=== PATIENT | female | born 1995 | race American Indian/Alaskan Native ===

== ENCOUNTER 2018-05-09 15:56 | Emergency (ER) | payer SELFPAY | END 2018-05-09 19:19 | disposition left against medical advice (07) | LOC: ED 15:56 | DX: Z02.89 Encounter for other administrative examinations (principal); R21 Rash and other nonspecific skin eruption ==

== ENCOUNTER 2018-06-30 20:08 | Emergency (ER) | payer SELFPAY ==
[2018-06-30 20:39] VITALS: RESP 18; TEMP 99.4; BMI 33.0
[2018-06-30 21:01] LABS: INFLUENZA A B NEGATIVE FOR FLU A/B (NEGATIVE)
[2018-06-30] MEDS ORDERED: Benzocaine/Menthol (Cepacol) Lozenge MT STA (21:01)
--- NOTE | 2018-06-30 21:05 | ED PDOC ---
Arrival/HPI - General Chief Complaint: ENT Problem Time Seen by Provider: 06/30/18 20:10 Historian: Patient - History of Present Illness Narrative History of Present Illness (Text): 22 y/o female with PMH of DM and asthma presents to the ED c/o sore throat, headache, and sinus congestion x 1 day. Sore throat is worse with swallowing. Admits to fever yesterday. Pt has not taken any medication for her symptoms. Denies recent travel or sick contacts. Denies chest pain, SOB, cough, abdominal pain, nausea, vomiting, urinary symptoms, ear pain, vision changes, dizziness, neck pain/stiffness or any other associated symptoms. Past Medical History - Provider Review Nursing Documentation Reviewed: Yes - Pulmonary Hx Asthma: Yes - Endocrine/Metabolic Hx Diabetes Mellitus Type 2: Yes - Psychiatric Hx Substance Use: No Family/Social History - Physician Review Nursing Documentation Reviewed: Yes Family/Social History: No Known Family HX Smoking Status: Never Smoked Hx Alcohol Use: No Hx Substance Use: No Allergies/Home Meds Allergies/Adverse Reactions: Allergies No Known Allergies Allergy (Verified 06/30/18 20:21) Review of Systems - Review of Systems Constitutional: Fevers Eyes: Normal. absent: Vision Changes, Photophobia ENT: Sore Throat Respiratory: Normal. absent: SOB, Cough Cardiovascular: Normal. absent: Chest Pain, Palpitations, Syncope Gastrointestinal: Normal. absent: Abdominal Pain, Nausea, Vomiting Genitourinary Female: Normal. absent: Dysuria, Frequency Musculoskeletal: Normal. absent: Back Pain, Neck Pain Skin: Normal. absent: Rash Neurological: Headache. absent: Dizziness, Focal Weakness Physical Exam Vital Signs Reviewed: Yes Vital Signs Temp Pulse Resp BP Pulse Ox 06/30/18 20:21 99.4 F 106 H 18 123/84 100 Temperature: Afebrile Blood Pressure: Normal Pulse: Tachycardic Respiratory Rate: Normal Appearance: Positive for: Well-Appearing, Non-Toxic, Comfortable Pain Distress: None Mental Status: Positive for: Alert and Oriented X 3 - Systems Exam Head: Present: Atraumatic, Normocephalic Pupils: Present: PERRL Extroacular Muscles: Present: EOMI Conjunctiva: Present: Normal Ears: Present: Normal, NORMAL TM, Normal Canal Mouth: Present: Moist Mucous Membranes Pharnyx: Present: ERYTHEMA (bilateral tonsils). No: EXUDATE, TONSILS ENLARGED, Peritonsilar Swelling, Uvular Deviation, Muffled/Hoarse Voice, Strider, Soft Palate/Uvular Edema Nose (External): Present: Atraumatic Nose (Internal): Present: Normal Inspection Neck: Present: Normal Range of Motion Respiratory/Chest: Present: Clear to Auscultation, Good Air Exchange. No: Respiratory Distress, Accessory Muscle Use Cardiovascular: Present: Regular Rate and Rhythm, Normal S1, S2. No: Murmurs Abdomen: No: Tenderness, Distention, Peritoneal Signs Back: Present: Normal Inspection. No: CVA Tenderness Upper Extremity: Present: Normal Inspection, Normal ROM, NORMAL PULSES, Neurovascularly Intact, Capillary Refill < 2s. No: Cyanosis, Edema, Temperature Abnormalties Lower Extremity: Present: Normal ROM Neurological: Present: GCS=15, CN II-XII Intact, Speech Normal Skin: Present: Warm, Dry, Normal Color. No: Rashes Lymphatic: No: Cervical Adenopathy Psychiatric: Present: Alert, Oriented x 3, Normal Insight, Normal Concentration, Normal Affect, Normal Mood Medical Decision Making ED Course and Treatment: Initial Plan: * Rapid strep * Rapid flu * Cepacol Rapid strep negative Rapid flu negative Advised PMD and ENT followup and supportive care Diagnostic testing results and plan of care discussed with patient. Strict instructions given regarding prescription use, importance of followup, and signs/symptoms to return to ER including worsening pain, difficulty breathing, eatin, SOB, or any other new/worsening symptoms. Pt verbalized understanding of discussion. Patient is A&Ox3, ambulating with steady gait, with vital signs stable for discharge. - Lab Interpretations Lab Results: Lab Results 06/30/18 20:40: Influenza Typ A,B (EIA) Negative for flu a/b, Grp A Beta Strep Ag Negative Disposition/Present on Arrival - Present on Arrival Any Indicators Present on Arrival: No History of DVT/PE: No History of Uncontrolled Diabetes: No Urinary Catheter: No History of Decub. Ulcer: No History Surgical Site Infection Following: None - Disposition Have Diagnosis and Disposition been Completed?: Yes Diagnosis: Pharyngitis Disposition: HOME/ ROUTINE Disposition Time: 21:02 Condition: GOOD Discharge Instructions (ExitCare): Viral Pharyngitis, Sore Throat in Adults Additional Instructions: Cepacol as needed for sore throat Ibuprofen/tylenol for pain and fever as needed Rest, no strenuous activity Increase fluids Followup with primary doctor within 2 days Followup with ENT within 2 days Return to ER with any new/worsening symptoms Prescriptions: Benzocaine/Menthol [Cepacol Sore Throat] 1 oskar MM Q4 PRN #30 oskar PRN Reason: Sore Throat Referrals: Pool Oshea DO [Staff Provider] - Follow up with primary Forms: [employer] (Spanish), WORK NOTE
[2018-06-30 22:35] VITALS: BP 121/78; PULSE 89; O2SAT 99
== END 2018-06-30 21:50 | disposition home or self-care (01) ==
LOC: ED 20:08
DX: J02.9 Acute pharyngitis, unspecified (principal)